=== PATIENT | female | born 1940 | race Caucasian/White ===

== ENCOUNTER 2017-06-15 14:10 | Emergency (ER) | payer MEDICARE, BC ==
[2017-06-15] MEDS ORDERED: Ondansetron 4 MG/2 ML SDV ONE (14:25)
[2017-06-15] MEDS ORDERED: Heparin Sodium/D5W 500 ML ONE (14:39)
[2017-06-15] MEDS ORDERED: Morphine 2 MG/ML Syringe IVPUSH ONE (14:46)
[2017-06-15] MEDS ORDERED: Metoprolol Tartrate 5 MG/5 ML SDV IVPUSH ONE (14:51)
[2017-06-15] MEDS ORDERED: Heparin Sodium 10,000 Units/1 ML MDV IVPUSH ONE (14:51)
[2017-06-15] MEDS ORDERED: Aspirin 81 MG Tab.Chew PO ONE (14:52)
[2017-06-15] MEDS ORDERED: Ondansetron 4 MG/2 ML SDV IVPUSH STA (14:56)
[2017-06-15 14:58] LABS: CHLORIDE,CL 98 mEq/L (98-106); SODIUM,NA 138 mEq/L (136-145)
[2017-06-15] MEDS ORDERED: Heparin Sodium/D5W 25,000 UNITS/500 ML BAG IV SCH (15:00)
[2017-06-15] MEDS ORDERED: Sodium Chloride 0.9% 500 ML IV SCH (15:00)
--- NOTE | 2017-06-15 15:06 | EDM.PDOC ---
ED HPI GENERAL MEDICAL PROBLEM - General Chief Complaint: Chest Pain Stated Complaint: CHEST PAIN/ ABD PAIN Time Seen by Provider: 06/15/17 14:10 Source of Information: Reports: Patient History Limitations: Reports: No Limitations - History of Present Illness INITIAL COMMENTS - FREE TEXT/NARRATIVE: This patient is a 77 year old female that presents to the ER. Patient presents ambulating into the ER. Patient is clinching her chest with her left hand. She is ambulating, thens tops, nearly falls clinching her chest saying she needs to stop and take a break. The patient is diaphoretic. The patient is immediately placed in stretcher in ER room 2. The patient reports that she woke up at 4am this morning due to pain in her epigastric area that radiated into her central chest then up into her jaw. She reports the pain was burning and sharp in nature. She reports since then she has had chest pain, nausea, shortness of breath that has not resolved. She reports taking Tums at home and had no relief in this pain. The patient is alert and oriented. Clinically she does present like an SD. I asked for an EKG immediately. Onset: Today Onset Date: 06/15/17 Onset Time: 04:00 Duration: Constant Location: Reports: Face (jaw), Chest, Abdomen (epigastric) Quality: Reports: Burning, Sharp, Stabbing Severity: Severe Improves with: Reports: None Worsens with: Reports: None Associated Symptoms: Reports: Chest Pain, Diaphoresis, Nausea/Vomiting, Shortness of Breath. Denies: Confusion, Cough, cough w sputum, Fever/Chills, Headaches, Loss of Appetite, Malaise, Rash, Seizure, Syncope, Weakness Treatments MOLD INSPECTOR: Reports: Other (see below) (Tums. Did not help per patient. ) Chest Pain Score (Numeric/FACES): 6 - Related Data Allergies Allergy/AdvReac Type Severity Reaction Status Date / Time aspirin Allergy Stomach Verified 06/15/17 14:43 Ache ciprofloxacin Allergy Stomach Verified 06/15/17 14:44 Upset nitrofurantoin Allergy Other Verified 06/15/17 14:43 macrocrystalline [From Macrodantin] Penicillins Allergy Swelling Verified 06/15/17 14:43 IVP dye Allergy Cardiac Uncoded 06/15/17 14:43 Arrest Home Meds: Home Meds ALPRAZolam [Alprazolam] 0.25 mg PO DAILY PRN 02/06/15 [History] Cholecalciferol (Vitamin D3) [Vitamin D3] 6,000 units PO DAILY 02/06/15 [History ] Estradiol 2 mg PO DAILY 02/06/15 [History] Isosorbide Mononitrate [Isosorbide Mononitrate ER] 30 mg PO DAILY 02/06/15 [ History] Loratadine [Claritin] 10 mg PO DAILY 02/06/15 [History] Verapamil HCl [Verapamil Sr] 360 mg PO DAILY 06/15/17 [History] Past Medical History Other Genitourinary History: bladder infections. Other OB/BYN History: hysterectomy. Other Musculoskeletal History: broken rib, wrist, toes, fingers. Social & Family History - Tobacco Use Smoking Status *Q: Never Smoker Second Hand Smoke Exposure: No - Alcohol Use Days Per Week of Alcohol Use: 1 Number of Drinks Per Day: 1 Total Drinks Per Week: 1 - Recreational Drug Use Recreational Drug Use: No ED ROS GENERAL - Review of Systems Review Of Systems: See Below Constitutional: Reports: No Symptoms HEENT: Reports: No Symptoms Respiratory: Reports: Shortness of Breath Cardiovascular: Reports: Chest Pain, Dyspnea on Exertion Endocrine: Reports: No Symptoms GI/Abdominal: Reports: Abdominal Pain (epigastric), Nausea, Vomiting : Reports: No Symptoms Musculoskeletal: Reports: No Symptoms Skin: Reports: Diaphoresis Neurological: Reports: No Symptoms Psychiatric: Reports: Anxiety Hematologic/Lymphatic: Reports: No Symptoms Immunologic: Reports: No Symptoms ED EXAM, GENERAL - Physical Exam Exam: See Below Exam Limited By: No Limitations General Appearance: Alert, WD/WN, Anxious, Moderate Distress, Other (appears in pain. Clinching chest. ) Eye Exam: Bilateral Eye: PERRL Ears: Normal External Exam, Normal Canal, Hearing Grossly Normal, Normal TMs Ear Exam: Bilateral Ear: Auricle Normal, Canal Normal, TM normal Nose: Normal Inspection, Normal Mucosa, No Blood Throat/Mouth: Normal Inspection, Normal Lips, Normal Teeth (dentures), Normal Gums, Normal Oropharynx, Normal Voice, No Airway Compromise Head: Atraumatic, Normocephalic Neck: Normal Inspection, Supple, Non-Tender, Full Range of Motion Respiratory/Chest: No Respiratory Distress, Lungs Clear, Normal Breath Sounds, No Accessory Muscle Use, Chest Non-Tender Cardiovascular: Normal Peripheral Pulses, Regular Rate, Rhythm, No Edema, No Gallop, No JVD, No Murmur, No Rub Peripheral Pulses: 2+: Radial (L), Radial (R), Posterior Tibial (L), Posterior Tibial (R) GI/Abdominal: Soft, Non-Tender, No Organomegaly, No Distention, No Abnormal Bruit, No Mass, Pelvis Stable Back Exam: Normal Inspection, Full Range of Motion Extremities: Normal Inspection, Normal Range of Motion, Non-Tender, No Pedal Edema, Normal Capillary Refill Neurological: Alert, Oriented, CN II-XII Intact, Normal Cognition Psychiatric: Anxious Skin Exam: Warm, Intact, Normal Color, No Rash, Diaphoretic Lymphatic: No Adenopathy EKG INTERPRETATION EKG Date: 06/15/17 Time: 14:19 Rate (Beats/Min): 90 ST-T: Elevated (but not 2mm. in inferior leads. Borderline.) ND/PQ Interval: Depression in 1 lead AVL. Comparison: NA - No Prior EKG Course - Vital Signs Last Recorded V/S: Last Vital Signs Temp 96.8 F 06/15/17 14:25 Pulse 93 06/15/17 15:28 Resp 16 06/15/17 15:28 BP 121/83 06/15/17 15:28 Pulse Ox 97 06/15/17 15:28 - Orders/Labs/Meds Labs: Laboratory Tests 06/15/17 06/15/17 06/15/17 Range/Units 14:28 14:28 14:28 WBC 7.1 (5.0-10.0) 10^3/uL RBC 4.59 (4.00-5.50) 10^6/uL Hgb 13.5 (12.0-16.0) g/dL Hct 41.2 (37.0-47.0) % MCV 89.8 (82.0-94.0) fL MCH 29.4 (27.0-32.0) pg MCHC 32.8 L (33.0-38.0) g/dL RDW Coeff of Hoang 14.2 (11.0-15.0) % Plt Count 202 (150-400) 10^3/uL Neut % (Auto) 82.4 (35-85) % Lymph % (Auto) 13.2 (10-55) % [place] % (Auto) 4.0 (0-16) % Eos % (Auto) 0.3 (0-5) % Baso % (Auto) 0.1 (0-3) % Neut # (Auto) 5.81 (1.80-7.00) 10^3/uL Lymph # (Auto) 0.93 L (1.00-4.80) 10^3/uL [place] # (Auto) 0.28 (0.00-0.80) 10^3/uL Eos # (Auto) 0.02 (0.00-0.45) 10^3/uL Baso # (Auto) 0.01 10^3/uL PT 10.0 (9.7-12.3) SEC INR 0.93 (0.92-1.18) APTT 26.6 (20.0-45.0) SEC Sodium 138 (136-145) mEq/L Potassium 4.2 (3.5-5.0) mEq/L Chloride 98 (98-106) mEq/L Carbon Dioxide 31 (21-32) mmol/L BUN 14 (7-18) mg/dL Creatinine 0.9 (0.6-1.0) mg/dL Est Cr Clr Drug Dosing 40.13 mL/min Estimated GFR (MDRD) > 60 (>=60) mL/min Glucose 118 H D (75-99) mg/dL Calcium 10.6 H (8.4-10.1) mg/dL Total Bilirubin 0.5 (0.0-1.0) mg/dL AST 22 (15-37) U/L ALT 23 (12-78) U/L Alkaline Phosphatase 92 (46-116) U/L Creatine Kinase 83 (21-215) U/L Troponin I 0.598 H (0.00-0.06) ng/mL Total Protein 8.5 H (6.4-8.2) g/dL Albumin 4.1 (3.4-5.0) g/dL Meds: Medications Discontinued Medications Generic Name Dose Route Start Last Admin Trade Name Freq PRN Reason Stop Dose Admin Aspirin 324 mg 06/15/17 14:52 06/15/17 14:15 Aspirin PO 06/15/17 14:53 324 mg ONETIME ONE Administration Heparin Sodium (Porcine) 4,091 units 06/15/17 14:51 06/15/17 15:04 Heparin Sodium IVPUSH 06/15/17 14:52 4,091 units .BOLUS ONE Administration Heparin Sodium/Dextrose Confirm 06/15/17 14:39 06/15/17 14:54 Heparin 25,000 Units In D5w 500 Ml Administered 06/15/17 14:40 Not Given Dose 500 mls @ as directed .ROUTE .STK-MED ONE Heparin Sodium/Dextrose 25,000 units in 500 mls @ 0 mls/hr 06/15/17 15:00 15:13 Heparin 25,000 Units In D5w 500 Ml IV 14.99 units/kg/hr TITRATE CHRISTIANO 20.4 mls/hr Protocol Administration 1,000 UNITS/KG/HR Sodium Chloride 500 mls @ 1,000 mls/hr 06/15/17 15:00 06/15/17 15:05 Normal Saline IV 1,000 mls/hr .BOLUS CHRISTIANO Administration Metoprolol Tartrate 2.5 mg 06/15/17 14:51 06/15/17 15:01 Lopressor IVPUSH 06/15/17 14:52 2.5 mg ONETIME ONE Administration Morphine Sulfate 2 mg 06/15/17 14:46 06/15/17 14:59 Morphine IVPUSH 06/15/17 14:47 2 mg ONETIME ONE Administration Morphine Sulfate 4 mg 06/15/17 15:10 06/15/17 15:18 Morphine IVPUSH 06/15/17 15:11 4 mg ONETIME ONE Administration Ondansetron HCl Confirm 06/15/17 14:25 06/15/17 15:03 Zofran Administered 06/15/17 14:26 Not Given Dose 4 mg .ROUTE .STK-MED ONE Ondansetron HCl 4 mg 06/15/17 14:56 06/15/17 14:25 Zofran IVPUSH 06/15/17 14:57 4 mg NOW STA Administration - Re-Assessments/Exams Free Text/Narrative Re-Assessment/Exam: 06/15/17 14:20 I have reviewed EKG, I have called and asked [facility] to review EKG. They have and report borderline EKG, ST elevation that is not 2mm. Suggested consult with cardiology. 06/15/17 14:27 I called and spoke with Dr. Lowry, EKG was sent to him. This is at [facility]. I discussed patient case with him. He reports Unstable angina with possible NonStemi SD. He reports to give the patient Lopressor, Heparin bolus and gtt, fluids. Did discuss patient has history of polyps with bowel bleeding about 4 years ago per patient. Need to treat with heparin anyways per cardiology due to benefits outweigh risks. Discussed with patient, she agrees to heparin, aware or risks. I have given the patient Morphine for pain. Patient is still laying in bed clinching her chest, curled in a position. At this time I do not have labs back, but clinically this patient appears as an SD. Ground transportation is not available ALS locally in [place]. I will fly this patient. Dr. Lowry is the accepting hybrid corn breeder. 06/15/17 15:31 Patient reports her pain has increased from a 6/10 to now a 7/10, more Morphine has been ordered. Troponin is elevated. I have called [facility] again and informed this of this lab. Departure - Departure Time of Disposition: 15:20 Disposition: DC/Tfer to Acute Hospital 02 Reason for Transfer *Q: Primary PCI Indicated Condition: Fair Clinical Impression: Acute myocardial infarction Qualifiers: Myocardial infarction ST status: non-ST elevation myocardial infarction Qualified Code(s): I21.4 - Non-ST elevation (NSTEMI) myocardial infarction Referrals: Ross Sharma MD [Primary Care Provider] - Forms: ED Department Discharge - Assessment/Plan Plan: PLEASE SEE RN NOTE FOR PFSH. The patient is being transferred via helicopter to [facility]. The risks of the transfer are crash, , worsening of SD, cardiac arrest, increase in pain. The benefits of the transfer are going to higher level of care, consult with hybrid corn breeder, cardiac intervention if needed. The risks of staying in [place] are , continued cardiac , cardiac arrest. The benefits of staying in [place] are close to home.
[2017-06-15] MEDS ORDERED: Morphine 4 MG/ML Syringe IVPUSH ONE (15:10)
[2017-06-15 17:31] VITALS: BP 121/83
== END 2017-06-15 16:00 ==
LOC: CC.ED 14:10
DX: I21.4 Non-ST elevation (NSTEMI) myocardial infarction (principal); Z79.899 Other long term (current) drug therapy; Z88.6 Allergy status to analgesic agent; Z88.1 Allergy status to other antibiotic agents; Z88.0 Allergy status to penicillin; Z88.8 Allergy status to other drugs, medicaments and biological substances; Z91.041 Radiographic dye allergy status
CPT/HCPCS: 36415; 71010; 80053; 82550; 84484; 85025; 85610; 85730; 93005; 96365; 96375; 96376; 99285; A9270; J1644; J2270; J2405; J7040; 93010; 96361; 96374; J3490

== ENCOUNTER 2017-08-22 17:05 | Emergency (ER) | payer MEDICARE, BC ==
[2017-08-22 17:41] LABS: CHLORIDE,CL 100 mEq/L (98-106); SODIUM,NA 141 mEq/L (136-145)
--- NOTE | 2017-08-22 17:47 | EDM.PDOC ---
ED HPI GENERAL MEDICAL PROBLEM - General Chief Complaint: Cardiovascular Problem Stated Complaint: IRREGULAR HEARTRATE Time Seen by Provider: 08/22/17 17:30 Source of Information: Reports: Patient History Limitations: Reports: No Limitations - History of Present Illness INITIAL COMMENTS - FREE TEXT/NARRATIVE: Josie is a 77 year old female who presents to the ED with complaints of dizziness, headache, and heart rate fluctuations. She reports that for the past two days she has had a headache and some dizziness. She reports the dizziness "feels like she's had too much to drink." She reports she had a heart attack back in May. She saw that her pulse went from 115-120 and became concerned. She reports she called her cigar packer and grader and they recommended she be seen. She reports she does have some anxiety and her mind began racing when she saw her pulse fluctuate that high. She did take a Xanax about 1 hour prior to ER presentation. She reports she wanted to make sure she wasn't in atrial fibrillation. At ED presentation, she denies any chest pain, shortness of breath , nausea, vomiting, diarrhea, recent illness, diaphoresis. She has no complaints other than dizziness and headache. She has otherwise been feeling well. When the nurse was doing med rec with the patient she points to a bottle of furosemide and states "that my stomach pills." We then said this medication wasn 't for her stomach. She reports she has been taking it "at least" twice a day for the past few days because she thought it was the pill for her acid reflux. Upon further review, it was noted that the patient is supposed to be taking OTC famotidine. She thought this was her furosemide, so she has been taking that instead. She has not been taking any famotidine. Onset Date: 08/21/17 Duration: Constant Location: Reports: Head Quality: Reports: Ache Associated Symptoms: Reports: Headaches. Denies: Confusion, Chest Pain, Cough, cough w sputum, Diaphoresis, Fever/Chills, Loss of Appetite, Malaise, Nausea/ Vomiting, Rash, Seizure, Shortness of Breath, Syncope, Weakness Treatments DATABASE MANAGER: Reports: Other Medication(s) (XANAX) Headache Pain Score (Numeric/FACES): 6 - Related Data Allergies Allergy/AdvReac Type Severity Reaction Status Date / Time aspirin Allergy Stomach Verified 06/15/17 14:43 Ache ciprofloxacin Allergy Stomach Verified 06/15/17 14:44 Upset nitrofurantoin Allergy Other Verified 06/15/17 14:43 macrocrystalline [From Macrodantin] Penicillins Allergy Swelling Verified 06/15/17 14:43 IVP dye Allergy Cardiac Uncoded 06/15/17 14:43 Arrest Home Meds: Home Meds ALPRAZolam [Alprazolam] 0.25 mg PO DAILY PRN 02/06/15 [History] Estradiol 2 mg PO DAILY 02/06/15 [History] Aspirin [Halfprin] 162 mg PO BID 08/22/17 [History] Clopidogrel Bisulfate [Clopidogrel] 75 mg PO DAILY 08/22/17 [History] Furosemide [Furosemide] 40 mg PO DAILY 08/22/17 [History] Loratadine 10 mg PO DAILY 08/22/17 [History] Magnesium 250 mg PO DAILY 08/22/17 [History] Metoprolol Succinate [Toprol XL] 25 mg PO DAILY 08/22/17 [History] Potassium Chloride [Klor-Con 10] 10 meq PO DAILY 08/22/17 [History] atorvaSTATin [Lipitor] 40 mg PO BEDTIME 08/22/17 [History] Past Medical History Cardiovascular History: Reports: Afib, Blood Clots/VTE/DVT Gastrointestinal History: Reports: Bowel Obstruction Genitourinary History: Reports: UTI, Recurrent Other Genitourinary History: bladder infections. CEMENT BOAT AND BARGE LOADER History: Reports: Polycystic Ovaries Other OB/BYN History: hysterectomy. Musculoskeletal History: Reports: Arthritis, Back Pain, Chronic, Fracture, Osteoarthritis, Other (See Below) Other Musculoskeletal History: broken rib, wrist, toes, fingers. Neurological History: Reports: Vertigo Psychiatric History: Reports: Anxiety Hematologic History: Reports: Anemia Oncologic (Cancer) History: Reports: Basal Cell Carcinoma Dermatologic History: Reports: Eczema - Past Surgical History HEENT Surgical History: Reports: Tonsillectomy GI Surgical History: Reports: Appendectomy, Colonoscopy, Polypectomy Female Surgical History: Reports: Hysterectomy Neurological Surgical History: Reports: None Musculoskeletal Surgical History: Reports: Shoulder Surgery Social & Family History - Family History Family Medical History: Noncontributory - Tobacco Use Smoking Status *Q: Never Smoker Used Tobacco, but Quit: Yes Month Tobacco Last Used: 35YRS AGO Second Hand Smoke Exposure: No - Alcohol Use Days Per Week of Alcohol Use: 1 Number of Drinks Per Day: 1 Total Drinks Per Week: 1 - Recreational Drug Use Recreational Drug Use: No ED ROS GENERAL - Review of Systems Review Of Systems: See Below Constitutional: Denies: Fever, Chills, Malaise, Weakness, Fatigue, Diaphoresis HEENT: Denies: Ear Pain, Eye Pain, Rhinitis, Sinus Problem, Vision Change Respiratory: Denies: Shortness of Breath, Wheezing, Pleuritic Chest Pain, Cough , Sputum Cardiovascular: Reports: Lightheadedness. Denies: Chest Pain, Blood Pressure Problem, Claudication, Dyspnea on Exertion, Edema, Palpitations, Syncope Endocrine: Denies: Fatigue GI/Abdominal: Denies: Abdominal Pain, Diarrhea, Decreased Appetite, Nausea, Vomiting : Reports: Frequency, Other (foul smelling urine). Denies: Dysuria, Flank Pain, Pain, Urgency Musculoskeletal: Reports: No Symptoms. Denies: Shoulder Pain, Arm Pain Skin: Reports: No Symptoms. Denies: Cyanosis, Pallor, Diaphoresis Neurological: Reports: Dizziness, Headache. Denies: Confusion ED EXAM, GENERAL - Physical Exam Exam: See Below Exam Limited By: No Limitations General Appearance: Alert, WD/WN, Anxious Eye Exam: Bilateral Eye: EOMI, Normal Fundi, Normal Inspection, PERRL Head: Atraumatic, Normocephalic Neck: Normal Inspection, Supple, Non-Tender, Full Range of Motion Respiratory/Chest: No Respiratory Distress, Lungs Clear, Normal Breath Sounds, No Accessory Muscle Use, Chest Non-Tender Cardiovascular: Normal Peripheral Pulses, Regular Rate, Rhythm, No Edema, No Gallop, No JVD, No Murmur, No Rub GI/Abdominal: Normal Bowel Sounds, Soft, Non-Tender, No Organomegaly, No Distention, No Abnormal Bruit, No Mass Back Exam: Normal Inspection, Full Range of Motion. No: CVA Tenderness (L), CVA Tenderness (R) Extremities: Normal Inspection, Normal Range of Motion, Non-Tender, Normal Capillary Refill, No Pedal Edema Neurological: Alert, Oriented, CN II-XII Intact, Normal Cognition, Normal Gait, Normal Reflexes, No Motor/Sensory Deficits Psychiatric: Anxious Skin Exam: Warm, Dry, Intact, Normal Color, No Rash Lymphatic: No Adenopathy Course - Vital Signs Last Recorded V/S: Last Vital Signs Temp 95.8 F 08/22/17 17:10 Pulse 101 H 08/22/17 17:48 Resp 16 08/22/17 17:48 BP 123/75 08/22/17 17:48 Pulse Ox 94 L 08/22/17 17:48 - Orders/Labs/Meds Orders: Active Orders 24 hr Category Date Time Status Chest 2V [CR] Stat Exams 08/22/17 17:12 Taken UA W/MICROSCOPIC [URIN] Stat Lab 08/22/17 17:50 Uncollected Lactated Ringers [Ringers, Lactated] 1,000 ml Med 08/22/17 18:00 Active IV ASDIRECTED Medication Orders Lactated Ringer's (Ringers, Lactated) 1,000 mls @ 999 mls/hr IV ASDIRECTED CHRISTIANO Last Admin: 08/22/17 18:00 Dose: 999 mls/hr Labs: Laboratory Tests 08/22/17 08/22/17 08/22/17 Range/Units 17:20 17:20 17:20 WBC 6.3 (5.0-10.0) 10^3/uL RBC 4.71 (4.00-5.50) 10^6/uL Hgb 13.9 (12.0-16.0) g/dL Hct 42.4 (37.0-47.0) % MCV 90.0 (82.0-94.0) fL MCH 29.5 (27.0-32.0) pg MCHC 32.8 L (33.0-38.0) g/dL RDW Coeff of Hoang 15.1 H (11.0-15.0) % Plt Count 203 (150-400) 10^3/uL Neut % (Auto) 65.7 (35-85) % Lymph % (Auto) 22.8 (10-55) % [place] % (Auto) 9.0 (0-16) % Eos % (Auto) 2.2 (0-5) % Baso % (Auto) 0.3 (0-3) % Neut # (Auto) 4.14 (1.80-7.00) 10^3/uL Lymph # (Auto) 1.44 (1.00-4.80) 10^3/uL [place] # (Auto) 0.57 (0.00-0.80) 10^3/uL Eos # (Auto) 0.14 (0.00-0.45) 10^3/uL Baso # (Auto) 0.02 10^3/uL PT 10.0 (9.7-12.3) SEC INR 0.93 (0.92-1.18) APTT 25.5 (20.0-45.0) SEC Sodium 141 (136-145) mEq/L Potassium 3.9 (3.5-5.0) mEq/L Chloride 100 (98-106) mEq/L Carbon Dioxide 30 (21-32) mmol/L BUN 20 H (7-18) mg/dL Creatinine 1.2 H (0.6-1.0) mg/dL Est Cr Clr Drug Dosing TNP Estimated GFR (MDRD) 44 L (>=60) mL/min Glucose 110 H (75-99) mg/dL Calcium 9.3 (8.4-10.1) mg/dL Lactate Dehydrogenase 159 (100-190) U/L Creatine Kinase 53 (21-215) U/L Troponin I < 0.017 (0.00-0.06) ng/mL Meds: Medications Generic Name Dose Route Start Last Admin Trade Name Freq PRN Reason Stop Dose Admin Lactated Ringer's 1,000 mls @ 999 mls/hr 08/22/17 18:00 08/22/17 18:00 Ringers, Lactated IV 999 mls/hr [facility]ED [facility] Administration - Re-Assessments/Exams Free Text/Narrative Re-Assessment/Exam: 08/22/17 18:04 Labs reviewed and discussed with patient. I suspect patient has been taking too much lasix. Her creatinine is 1.2 & BUN is 20. I also suspect this may be causing her headache and dizziness. Will bolus 1 L LR. 08/22/17 19:06 Patient reports she is feeling much better after IVF. She reports her dizziness and headache have improved. Will discharge home. Departure - Departure Time of Disposition: 19:06 Disposition: Home, Self-Care 01 Condition: Good Clinical Impression: Acute renal insufficiency, Dehydration, mild Instructions: Acute Kidney Injury, Dehydration, Adult, [id number] Referrals: Ross Sharma MD [Primary Care Provider] - Forms: ED Department Discharge Additional Instructions: Drink 64 ounces of water per day Furosemide (Lasix) as needed for edema/swelling Famotidine (Pepcid) as needed for reflux symptoms Tylenol as needed for headache Follow up with PCP - My Orders Last 24 Hours: My Active Orders 08/22/17 17:50 UA W/MICROSCOPIC [URIN] Stat 08/22/17 18:00 Lactated Ringers [Ringers, Lactated] 1,000 ml IV ASDIRECTED - Assessment/Plan Last 24 Hours: My Active Orders 08/22/17 17:50 UA W/MICROSCOPIC [URIN] Stat 08/22/17 18:00 Lactated Ringers [Ringers, Lactated] 1,000 ml IV ASDIRECTED
[2017-08-22 17:48] VITALS: BP 123/75
[2017-08-22] MEDS ORDERED: Lactated Ringers 1,000 ML IV SCH (18:00)
== END 2017-08-22 19:15 | disposition home or self-care (01) ==
LOC: CC.ED 17:05
DX: N28.9 Disorder of kidney and ureter, unspecified (principal); E86.0 Dehydration; Z79.82 Long term (current) use of aspirin; Z79.899 Other long term (current) drug therapy; Z88.6 Allergy status to analgesic agent; Z88.1 Allergy status to other antibiotic agents; Z88.0 Allergy status to penicillin; Z88.8 Allergy status to other drugs, medicaments and biological substances; Z91.041 Radiographic dye allergy status
CPT/HCPCS: 36415; 71046; 80048; 82550; 83615; 84484; 85025; 85610; 85730; 93005; 93010; 96360; 99284; J7120

== ENCOUNTER 2017-09-07 13:51 | Emergency (ER) | payer MEDICARE, BC ==
[2017-09-07 13:55] VITALS: BP 139/56
--- NOTE | 2017-09-07 14:18 | EDM.PDOC ---
ED HPI GENERAL MEDICAL PROBLEM - General Chief Complaint: Abdominal Pain Stated Complaint: abdominal pain Time Seen by Provider: 09/07/17 14:05 - History of Present Illness INITIAL COMMENTS - FREE TEXT/NARRATIVE: Josie is a 77 year old female who presents to the ED with complaints of epigastric abdominal pain and nausea. She was seen in the clinic yesterday and started on antibiotics for a suspected UTI. UA was negative, but antibiotics were started based on suspicion. Urine was cultured and shows > 100,000 alpha hemolytic strep. Patient reports that her dysuria has improved, as she has been taking AZO. She does report her urine is orange in color. She reports she has had decreased appetite due to the nausea. She has not eaten or drank anything today. Her ED chart indicates she has listed Macrobid as an allergy in the past. Clinic chart, where antibiotics were started did not have it listed as allergy. Patient does not remember if she truly has an allergy to it but reports she has not taken the antibiotic today as she is sick to her stomach. Onset: Today Duration: Intermittent Location: Reports: Abdomen Quality: Reports: Ache, Burning Severity: Moderate Upper Epigastric Pain Score (Numeric/FACES): 7 - Related Data Allergies Allergy/AdvReac Type Severity Reaction Status Date / Time Penicillins Allergy Swelling Verified 06/15/17 14:43 ciprofloxacin AdvReac Mild Nausea and Verified 09/08/17 15:34 Vomiting nitrofurantoin AdvReac Mild Other Verified 09/08/17 15:34 macrocrystalline [From Macrodantin] aspirin AdvReac Stomach Verified 09/08/17 15:34 Ache IVP dye Allergy Severe Cardiac Uncoded 09/08/17 15:34 Arrest Home Meds: Home Meds ALPRAZolam [Alprazolam] 0.25 mg PO DAILY PRN 02/06/15 [History] Estradiol 2 mg PO DAILY 02/06/15 [History] Aspirin [Halfprin] 162 mg PO BID 08/22/17 [History] Clopidogrel Bisulfate [Clopidogrel] 75 mg PO DAILY 08/22/17 [History] Furosemide [Furosemide] 40 mg PO DAILY 08/22/17 [History] Loratadine 10 mg PO DAILY 08/22/17 [History] Magnesium 250 mg PO DAILY 08/22/17 [History] Metoprolol Succinate [Toprol XL] 25 mg PO DAILY 08/22/17 [History] Potassium Chloride [Klor-Con 10] 10 meq PO DAILY 08/22/17 [History] atorvaSTATin [Lipitor] 40 mg PO BEDTIME 08/22/17 [History] Past Medical History Cardiovascular History: Reports: Afib, Blood Clots/VTE/DVT Gastrointestinal History: Reports: Bowel Obstruction Genitourinary History: Reports: UTI, Recurrent Other Genitourinary History: bladder infections. RN VASCULAR History: Reports: Polycystic Ovaries Other OB/BYN History: hysterectomy. Musculoskeletal History: Reports: Arthritis, Back Pain, Chronic, Fracture, Osteoarthritis, Other (See Below) Other Musculoskeletal History: broken rib, wrist, toes, fingers. Neurological History: Reports: Vertigo Psychiatric History: Reports: Anxiety Hematologic History: Reports: Anemia Oncologic (Cancer) History: Reports: Basal Cell Carcinoma Dermatologic History: Reports: Eczema - Past Surgical History HEENT Surgical History: Reports: Tonsillectomy GI Surgical History: Reports: Appendectomy, Colonoscopy, Polypectomy Female Surgical History: Reports: Hysterectomy Neurological Surgical History: Reports: None Musculoskeletal Surgical History: Reports: Shoulder Surgery Social & Family History - Family History Family Medical History: Noncontributory - Tobacco Use Smoking Status *Q: Never Smoker Used Tobacco, but Quit: Yes Month Tobacco Last Used: 35YRS AGO Second Hand Smoke Exposure: No - Caffeine Use Caffeine Use: Reports: Coffee - Alcohol Use Days Per Week of Alcohol Use: 1 Number of Drinks Per Day: 1 Total Drinks Per Week: 1 - Recreational Drug Use Recreational Drug Use: No ED ROS GENERAL - Review of Systems Review Of Systems: See Below Constitutional: Reports: Weakness, Fatigue, Decreased Appetite. Denies: Fever, Chills HEENT: Reports: No Symptoms Respiratory: Reports: No Symptoms. Denies: Shortness of Breath, Cough, Sputum Cardiovascular: Reports: Lightheadedness. Denies: Chest Pain Endocrine: Reports: Fatigue GI/Abdominal: Reports: Abdominal Pain, Decreased Appetite, Nausea. Denies: Black Stool, Bloody Stool, Diarrhea : Reports: Dysuria, Frequency, Urgency Neurological: Reports: No Symptoms. Denies: Confusion Psychiatric: Reports: Anxiety ED EXAM, GI/ABD - Physical Exam Exam: See Below Exam Limited By: No Limitations General Appearance: Alert, WD/WN, No Apparent Distress, Anxious Ears: Normal External Exam, Normal Canal, Hearing Grossly Normal, Normal TMs Nose: Normal Inspection, Normal Mucosa, No Blood Throat/Mouth: Normal Inspection, Normal Lips, Normal Teeth, Normal Gums, Normal Oropharynx, Normal Voice, No Airway Compromise Head: Atraumatic, Normocephalic Neck: Normal Inspection, Supple, Non-Tender, Full Range of Motion Respiratory/Chest: No Respiratory Distress, Lungs Clear, Normal Breath Sounds, No Accessory Muscle Use, Chest Non-Tender Cardiovascular: Normal Peripheral Pulses, Regular Rate, Rhythm, No Edema, No Gallop, No JVD, No Murmur, No Rub GI/Abdominal Exam: Normal Bowel Sounds, Soft, Tender (epigastric). No: No Distention, Guarding, Rigid, Rebound (Female) Exam: Deferred Back Exam: No: CVA Tenderness (L), CVA Tenderness (R) Extremities: Normal Inspection, Normal Range of Motion, Non-Tender, Normal Capillary Refill, No Pedal Edema Neurological: Alert, Oriented, CN II-XII Intact, Normal Cognition, Normal Gait, Normal Reflexes, No Motor/Sensory Deficits Psychiatric: Anxious Skin Exam: Warm, Dry, Intact, Normal Color, No Rash Lymphatic: No Adenopathy Course - Vital Signs Last Recorded V/S: Last Vital Signs Temp 98.3 F 09/07/17 13:52 Pulse 89 09/07/17 13:52 Resp 20 09/07/17 13:52 BP 139/56 L 09/07/17 13:52 Pulse Ox 96 09/07/17 13:52 - Orders/Labs/Meds Labs: Laboratory Tests 09/07/17 09/07/17 Range/Units 14:35 14:35 WBC 12.2 H (5.0-10.0) 10^3/uL RBC 4.47 (4.00-5.50) 10^6/uL Hgb 13.1 (12.0-16.0) g/dL Hct 41.5 (37.0-47.0) % MCV 92.8 (82.0-94.0) fL MCH 29.3 (27.0-32.0) pg MCHC 31.6 L (33.0-38.0) g/dL RDW Coeff of Hoang 14.5 (11.0-15.0) % Plt Count 186 (150-400) 10^3/uL Neut % (Auto) 83.4 (35-85) % Lymph % (Auto) 8.5 L (10-55) % [place] % (Auto) 7.6 (0-16) % Eos % (Auto) 0.3 (0-5) % Baso % (Auto) 0.2 (0-3) % Neut # (Auto) 10.20 H (1.80-7.00) 10^3/uL Lymph # (Auto) 1.04 (1.00-4.80) 10^3/uL Noble # (Auto) 0.93 H (0.00-0.80) 10^3/uL Eos # (Auto) 0.04 (0.00-0.45) 10^3/uL Baso # (Auto) 0.02 10^3/uL Sodium 137 (136-145) mEq/L Potassium 4.8 D (3.5-5.0) mEq/L Chloride 100 (98-106) mEq/L Carbon Dioxide 30 (21-32) mmol/L BUN 17 (7-18) mg/dL Creatinine 1.0 (0.6-1.0) mg/dL Est Cr Clr Drug Dosing 36.11 mL/min Estimated GFR (MDRD) 54 L (>=60) mL/min Glucose 126 H (75-99) mg/dL Calcium 9.5 (8.4-10.1) mg/dL Total Bilirubin 0.8 (0.0-1.0) mg/dL AST 16 (15-37) U/L ALT 18 (12-78) U/L Alkaline Phosphatase 104 (46-116) U/L Lactate Dehydrogenase 158 (100-190) U/L Creatine Kinase 90 (21-215) U/L Troponin I < 0.017 (0.00-0.06) ng/mL C-Reactive Protein 4.5 H (0.2-0.8) mg/dL Total Protein 7.7 (6.4-8.2) g/dL Albumin 3.6 (3.4-5.0) g/dL Meds: Medications Discontinued Medications Generic Name Dose Route Start Last Admin Trade Name Freq PRN Reason Stop Dose Admin Ceftriaxone Sodium 1 gm 09/07/17 14:48 09/07/17 15:01 Rocephin IVPUSH 09/07/17 14:49 1 gm ONETIME ONE Administration Al Hydroxide/Mg Hydroxide 30 0 ml 01/21/18 15:08 09/07/17 15:15 ml/ Lidocaine HCl 15 ml PO 09/07/17 15:09 45 ml ONETIME ONE Administration Sodium Chloride 1,000 mls @ 999 mls/hr 09/07/17 14:46 09/07/17 14:57 Normal Saline IV 09/07/17 15:46 999 mls/hr .BOLUS ONE Administration - Re-Assessments/Exams Free Text/Narrative Re-Assessment/Exam: 09/07/17 15:09 Discussed labs and EKG with patient. Discussed urine culture results. IVF and rocephin administered. Patient continued to have reflux type symptoms and burning pain in epigastric area. Will try GI cocktail. 09/07/17 15:39 Pain improved after GI cocktail. Nausea improved after IVF. Will discharge home. Departure - Departure Time of Disposition: 15:36 Disposition: Home, Self-Care 01 Condition: Good Clinical Impression: Nausea UTI (urinary tract infection) Qualifiers: Urinary tract infection type: site unspecified Hematuria presence: without hematuria Qualified Code(s): N39.0 - Urinary tract infection, site not specified GERD (gastroesophageal reflux disease) Qualifiers: Esophagitis presence: esophagitis presence not specified Qualified Code(s): K21.9 - Gastro-esophageal reflux disease without esophagitis - Discharge Information Instructions: Indigestion, [id number], Nausea and Vomiting, Adult, Easy-to- Read, Urinary Tract Infection, Adult Referrals: Ross Sharma MD [Primary Care Provider] - Forms: ED Department Discharge Additional Instructions: Push fluids Antibiotic as prescribed Small frequent meals Follow up in clinic next week, sooner if symptoms worsen or do not improve
[2017-09-07] MEDS ORDERED: Sodium Chloride 0.9% 1,000 ML IV ONE (14:46)
[2017-09-07] MEDS ORDERED: cefTRIAXone 1 GM Vial IVPUSH ONE (14:48)
[2017-09-07 14:56] LABS: CHLORIDE,CL 100 mEq/L (98-106); SODIUM,NA 137 mEq/L (136-145)
[2017-09-07] MEDS ORDERED: Alum Hydrox/Mag Hydrox/Simeth 30 ML, Lidocaine 2% 15 ML PO ONE ×2 (15:08)
== END 2017-09-07 16:00 | disposition home or self-care (01) ==
LOC: CC.ED 13:51
DX: K21.9 Gastro-esophageal reflux disease without esophagitis (principal); N39.0 Urinary tract infection, site not specified; I48.91 Unspecified atrial fibrillation; F41.9 Anxiety disorder, unspecified; Z88.0 Allergy status to penicillin; Z88.1 Allergy status to other antibiotic agents; Z88.6 Allergy status to analgesic agent; Z91.041 Radiographic dye allergy status; Z79.82 Long term (current) use of aspirin; Z90.49 Acquired absence of other specified parts of digestive tract; Z98.890 Other specified postprocedural states
CPT/HCPCS: 36415; 80053; 82550; 83615; 84484; 85025; 86140; 93005; 96361; 96374; 99283; A9270; J0696; J7030; 93010; 99284

== ENCOUNTER 2017-11-25 11:02 | Emergency (ER) | payer MEDICARE, BC ==
[2017-11-25 11:41] LABS: CHLORIDE,CL 104 mEq/L (98-106); SODIUM,NA 143 mEq/L (136-145)
[2017-11-25 13:43] VITALS: BP 116/45
[2017-11-25] MEDS: Ibuprofen 200 MG Tab PO PRN (14:05)
--- NOTE | 2017-11-25 14:08 | EDM.PDOC ---
ED HPI GENERAL MEDICAL PROBLEM - General Chief Complaint: Chest Pain Stated Complaint: CP Time Seen by Provider: 11/25/17 11:26 Source of Information: Reports: Patient History Limitations: Reports: No Limitations - History of Present Illness INITIAL COMMENTS - FREE TEXT/NARRATIVE: Patient presents to ER with complaints of chest pain. States she was up and about this am, getting ready for the day when she developed pain in the anterior chest that radiated through to her back. Does admit that it hurts worse with taking a deep breath. Reports history of [place] back in the fall, was placed on Plavix. Relates it was in the lining of her heart but her "vessels are pristine". She does admit that the pain she had then was different than now. Does admit to shortness of breath but that is chronic in nature. No nausea or diaphoresis. Has not had any trauma lately, no straining injuries. Onset: Today, Sudden Duration: Hour(s):, Waxing/Waning Location: Reports: Chest Quality: Reports: Sharp Severity: Moderate Improves with: Reports: Rest Worsens with: Reports: Breathing Associated Symptoms: Reports: Chest Pain, Shortness of Breath. Denies: Cough, Diaphoresis, Fever/Chills, Headaches, Loss of Appetite, Nausea/Vomiting, Syncope , Weakness Treatments FEED CRUSHER: Reports: Aspirin - Related Data Allergies Allergy/AdvReac Type Severity Reaction Status Date / Time Penicillins Allergy Swelling Verified 11/25/17 11:45 ciprofloxacin AdvReac Mild Nausea and Verified 11/25/17 11:45 Vomiting nitrofurantoin AdvReac Mild Other Verified 11/25/17 11:45 macrocrystalline [From Macrodantin] aspirin AdvReac Stomach Verified 11/25/17 11:45 Ache IVP dye Allergy Severe Cardiac Uncoded 09/08/17 15:34 Arrest Home Meds: Home Meds ALPRAZolam [Alprazolam] 0.25 mg PO DAILY PRN 02/06/15 [History] Estradiol 2 mg PO DAILY 02/06/15 [History] Aspirin [Halfprin] 162 mg PO BID 08/22/17 [History] Clopidogrel Bisulfate [Clopidogrel] 75 mg PO DAILY 08/22/17 [History] Furosemide 40 mg PO DAILY 08/22/17 [History] Loratadine 10 mg PO DAILY 08/22/17 [History] Magnesium 250 mg PO DAILY 08/22/17 [History] Metoprolol Succinate [Toprol XL] 25 mg PO DAILY 08/22/17 [History] Potassium Chloride [Klor-Con 10] 10 meq PO DAILY 08/22/17 [History] atorvaSTATin [Lipitor] 40 mg PO BEDTIME 08/22/17 [History] Past Medical History Cardiovascular History: Reports: Afib, Blood Clots/VTE/DVT Gastrointestinal History: Reports: Bowel Obstruction Genitourinary History: Reports: UTI, Recurrent Other Genitourinary History: bladder infections. SALES MGR History: Reports: Polycystic Ovaries Other OB/BYN History: hysterectomy. Musculoskeletal History: Reports: Arthritis, Back Pain, Chronic, Fracture, Osteoarthritis, Other (See Below) Other Musculoskeletal History: broken rib, wrist, toes, fingers. Neurological History: Reports: Vertigo Psychiatric History: Reports: Anxiety Hematologic History: Reports: Anemia Oncologic (Cancer) History: Reports: Basal Cell Carcinoma Dermatologic History: Reports: Eczema - Past Surgical History HEENT Surgical History: Reports: Tonsillectomy GI Surgical History: Reports: Appendectomy, Colonoscopy, Polypectomy Female Surgical History: Reports: Hysterectomy Neurological Surgical History: Reports: None Musculoskeletal Surgical History: Reports: Shoulder Surgery Social & Family History - Family History Family Medical History: Noncontributory - Tobacco Use Smoking Status *Q: Never Smoker Used Tobacco, but Quit: Yes Month/Year Tobacco Last Used: 35YRS AGO Second Hand Smoke Exposure: No - Caffeine Use Caffeine Use: Reports: None - Alcohol Use Days Per Week of Alcohol Use: 1 Number of Drinks Per Day: 1 Total Drinks Per Week: 1 - Recreational Drug Use Recreational Drug Use: No ED ROS GENERAL - Review of Systems Review Of Systems: See Below Constitutional: Denies: Fever, Chills, Malaise, Weakness HEENT: Reports: No Symptoms Respiratory: Reports: Shortness of Breath. Denies: Cough Cardiovascular: Reports: Chest Pain. Denies: Edema, Lightheadedness Endocrine: Denies: Fatigue GI/Abdominal: Denies: Abdominal Pain, Constipation, Diarrhea, Nausea, Vomiting : Reports: No Symptoms Musculoskeletal: Reports: Back Pain Skin: Reports: No Symptoms ED EXAM, GENERAL - Physical Exam Exam: See Below Exam Limited By: No Limitations General Appearance: Alert, WD/WN, No Apparent Distress Ears: Normal External Exam, Normal TMs Nose: Normal Inspection, Normal Mucosa, No Blood Throat/Mouth: Normal Inspection, Normal Oropharynx Head: Normocephalic Neck: Normal Inspection, Supple, Non-Tender Respiratory/Chest: No Respiratory Distress, Lungs Clear, Normal Breath Sounds Cardiovascular: Regular Rate, Rhythm GI/Abdominal: Normal Bowel Sounds, Soft, Non-Tender Extremities: Normal Inspection, No Pedal Edema Neurological: Alert, Oriented Skin Exam: Warm, Dry Course - Vital Signs Last Recorded V/S: Last Vital Signs Temp 97.2 F 11/25/17 13:35 Pulse 79 11/25/17 13:35 Resp 18 11/25/17 13:35 BP 116/45 L 11/25/17 13:35 Pulse Ox 97 11/25/17 13:35 - Orders/Labs/Meds Orders: Active Orders 24 hr Category Date Time Status EKG Documentation Completion [RC] STAT Care 11/25/17 11:16 Active Chest 2V [CR] Stat Exams 11/25/17 11:16 Taken Labs: Laboratory Tests 11/25/17 11/25/17 11/25/17 Range/Units 11:19 11:19 11:19 WBC 7.2 (5.0-10.0) 10^3/uL RBC 4.65 (4.00-5.50) 10^6/uL Hgb 13.8 (12.0-16.0) g/dL Hct 43.2 (37.0-47.0) % MCV 92.9 (82.0-94.0) fL MCH 29.7 (27.0-32.0) pg MCHC 31.9 L (33.0-38.0) g/dL RDW Coeff of Hoang 15.2 H (11.0-15.0) % Plt Count 192 (150-400) 10^3/uL Neut % (Auto) 64.7 (35-85) % Lymph % (Auto) 22.8 (10-55) % [place] % (Auto) 9.5 (0-16) % Eos % (Auto) 2.7 (0-5) % Baso % (Auto) 0.3 (0-3) % Neut # (Auto) 4.64 (1.80-7.00) 10^3/uL Lymph # (Auto) 1.63 (1.00-4.80) 10^3/uL [place] # (Auto) 0.68 (0.00-0.80) 10^3/uL Eos # (Auto) 0.19 (0.00-0.45) 10^3/uL Baso # (Auto) 0.02 10^3/uL PT 10.0 (9.7-12.3) SEC INR 0.96 (0.92-1.18) APTT 26.0 (23.2-32.3) SEC D-Dimer, Quantitative 0.25 (0.00-0.50) Sodium 143 (136-145) mEq/L Potassium 4.9 (3.5-5.0) mEq/L Chloride 104 (98-106) mEq/L Carbon Dioxide 31 (21-32) mmol/L BUN 20 H (7-18) mg/dL Creatinine 1.1 H (0.6-1.0) mg/dL Est Cr Clr Drug Dosing 32.83 mL/min Estimated GFR (MDRD) 48 L (>=60) mL/min Glucose 98 (75-99) mg/dL Calcium 9.5 (8.4-10.1) mg/dL Total Bilirubin 0.5 (0.0-1.0) mg/dL AST 24 (15-37) U/L ALT 52 (12-78) U/L Alkaline Phosphatase 313 H (46-116) U/L Lactate Dehydrogenase 157 (100-190) U/L Creatine Kinase 22 (21-215) U/L Troponin I < 0.017 (0.00-0.06) ng/mL Total Protein 7.8 (6.4-8.2) g/dL Albumin 3.6 (3.4-5.0) g/dL 11/25/17 Range/Units 15:35 WBC (5.0-10.0) 10^3/uL RBC (4.00-5.50) 10^6/uL Hgb (12.0-16.0) g/dL Hct (37.0-47.0) % MCV (82.0-94.0) fL MCH (27.0-32.0) pg MCHC (33.0-38.0) g/dL RDW Coeff of Hoang (11.0-15.0) % Plt Count (150-400) 10^3/uL Neut % (Auto) (35-85) % Lymph % (Auto) (10-55) % [place] % (Auto) (0-16) % Eos % (Auto) (0-5) % Baso % (Auto) (0-3) % Neut # (Auto) (1.80-7.00) 10^3/uL Lymph # (Auto) (1.00-4.80) 10^3/uL [place] # (Auto) (0.00-0.80) 10^3/uL Eos # (Auto) (0.00-0.45) 10^3/uL Baso # (Auto) 10^3/uL PT (9.7-12.3) SEC INR (0.92-1.18) APTT (23.2-32.3) SEC D-Dimer, Quantitative (0.00-0.50) Sodium (136-145) mEq/L Potassium (3.5-5.0) mEq/L Chloride (98-106) mEq/L Carbon Dioxide (21-32) mmol/L BUN (7-18) mg/dL Creatinine (0.6-1.0) mg/dL Est Cr Clr Drug Dosing mL/min Estimated GFR (MDRD) (>=60) mL/min Glucose (75-99) mg/dL Calcium (8.4-10.1) mg/dL Total Bilirubin (0.0-1.0) mg/dL AST (15-37) U/L ALT (12-78) U/L Alkaline Phosphatase (46-116) U/L Lactate Dehydrogenase (100-190) U/L Creatine Kinase (21-215) U/L Troponin I < 0.017 (0.00-0.06) ng/mL Total Protein (6.4-8.2) g/dL Albumin (3.4-5.0) g/dL Meds: Medications Discontinued Medications Generic Name Dose Route Start Last Admin Trade Name Freq PRN Reason Stop Dose Admin Ibuprofen 600 mg 11/25/17 13:51 11/25/17 14:05 Motrin PO 600 mg Q6H PRN Administration Pain Methylprednisolone Acetate 80 mg 11/25/17 16:40 11/25/17 17:10 Depo-Medrol IM 11/25/17 16:41 80 mg ONETIME ONE Administration - Re-Assessments/Exams Free Text/Narrative Re-Assessment/Exam: 11/25 Labs all normal. Will monitor and repeat enzymes in 4 hours due to cardiac history. Offered pain medicine but declines at this time. 11/25 1630 Patient doing well. Did get ibuprofen this afternoon and pain has improved. Enzymes are stable. Will give Depo Medrol as most likely pain from chest wall inflammation. Departure - Departure Time of Disposition: 16:41 Disposition: Home, Self-Care 01 Condition: Good Clinical Impression: Chest wall pain Referrals: Ross Sharma MD [Primary Care Provider] - Forms: ED Department Discharge Additional Instructions: 1. Rest 2. Ibuprofen or tylenol as needed for discomfort 3. Follow up if any ongoing concerns or new symptoms develop - My Orders Last 24 Hours: My Active Orders 11/25/17 11:16 EKG Documentation Completion [RC] STAT Chest 2V [CR] Stat - Assessment/Plan Last 24 Hours: My Active Orders 11/25/17 11:16 EKG Documentation Completion [RC] STAT Chest 2V [CR] Stat
[2017-11-25] MEDS: methylPREDNISolone Acetate 80 MG/ML SDV IM ONE (17:10)
== END 2017-11-25 17:15 | disposition home or self-care (01) ==
LOC: CC.ED 11:02
DX: R07.89 Other chest pain (principal); F41.9 Anxiety disorder, unspecified; Z88.0 Allergy status to penicillin; Z88.1 Allergy status to other antibiotic agents; Z79.899 Other long term (current) drug therapy; Z91.041 Radiographic dye allergy status; Z79.82 Long term (current) use of aspirin
CPT/HCPCS: 36415; 71046; 80053; 82550; 83615; 84484; 85025; 85379; 85610; 85730; 93005; 96372; 99284; A9270; J1040

== ENCOUNTER 2022-07-06 14:13 | Emergency (ER) | payer MEDICARE, BC ==
[2022-07-06 14:20] VITALS: BP 144/85; PULSE 105
[2022-07-06] MEDS ORDERED: Sodium Chloride 0.9% 10 ML Syringe FLUSH PRN (14:20)
[2022-07-06] MEDS ORDERED: Ondansetron 4 MG/2 ML SDV IVPUSH ONE (14:21)
[2022-07-06] MEDS ORDERED: Sodium Chloride 0.9% 1,000 ML IV ONE (14:38)
[2022-07-06 15:07] LABS: PTT,PARTIAL THROMBOPLSTIN TIME 23.9 SEC (23.2-32.3)
[2022-07-06 15:16] LABS: CORONAVIRUS COVID-19 NAA NEGATIVE (NEGATIVE); RESPIRATORY SYNCYTIAL VIR NAA NEGATIVE (NEGATIVE)
[2022-07-06] MEDS ORDERED: cefTRIAXone 1 GM Vial IVPUSH ONE (15:38)
[2022-07-06] MEDS ORDERED: Take Home: Cefuroxime 250 MG Tab, 2 Tab Pack PO ONE (15:42)
[2022-07-06] MEDS ORDERED: Take Home: Ondansetron 4 MG Tab.DIS, 2 Tab Pack PO ONE (15:46)
== END 2022-07-06 16:06 | disposition home or self-care (01) ==
LOC: SUPCPDRO 14:13 → CC.ED 14:13
DX: N30.01 Acute cystitis with hematuria (principal); K52.9 Noninfective gastroenteritis and colitis, unspecified; I48.91 Unspecified atrial fibrillation; K21.9 Gastro-esophageal reflux disease without esophagitis; Z88.0 Allergy status to penicillin; Z91.041 Radiographic dye allergy status; Z88.8 Allergy status to other drugs, medicaments and biological substances; Z79.82 Long term (current) use of aspirin; Z20.822 Contact with and (suspected) exposure to COVID-19
CPT/HCPCS: 0241U; 36415; 71046; 80053; 81001; 82150; 83690; 83735; 84484; 85025; 85610; 85730; 87086; 87088; 87186; 93005; 96361; 96374; 96375; 99284-25; A9270-GY; J0696; J2405; J7030

== ENCOUNTER 2024-04-16 20:52 | Emergency (ER) | payer MEDICARE, BC ==
[2024-04-16 22:02] LABS: APPEARANCE,URINE SLIGHTLY CLOUDY (CLEAR); BILIRUBIN,URINE NEGATIVE (NEGATIVE); COLOR,URINE YELLOW (YELLOW); GLUCOSE,URINE NEGATIVE (NEGATIVE); KETONES,URINE NEGATIVE (NEGATIVE); LEUKOCYTE ESTERASE,URINE SMALL (NEGATIVE); NITRITE,URINE POSITIVE (NEGATIVE); OCCULT BLOOD,URINE TRACE-INTACT (NEGATIVE); PH,URINE 5.5 (4.5-8.0); PROTEIN,URINE NEGATIVE (NEGATIVE); UROBILINOGEN,URINE 0.2 EU/dL (0.2-1.0)
[2024-04-16 22:09] LABS: BACTERIA,URINE MANY /HPF (NOT SEEN); EPITHELIAL CELLS,URINE MODERATE /HPF (NOT SEEN); WBC,URINE 50-75 /HPF (0-5)
[2024-04-16] MEDS: Take Home: Sulfamethoxazole/Trimethoprim 800-160 MG Tab, 6 Tab Pack PO ONE (22:24)
[2024-04-16 22:44] VITALS: BP 122/60; PULSE 77
== END 2024-04-16 22:43 | disposition home or self-care (01) ==
LOC: CC.ED 20:52
DX: N39.0 Urinary tract infection, site not specified (principal); I48.91 Unspecified atrial fibrillation; I25.2 Old myocardial infarction; M19.90 Unspecified osteoarthritis, unspecified site; Z90.49 Acquired absence of other specified parts of digestive tract; Z90.710 Acquired absence of both cervix and uterus; Z79.82 Long term (current) use of aspirin; Z79.899 Other long term (current) drug therapy; Z88.0 Allergy status to penicillin; Z88.1 Allergy status to other antibiotic agents; Z88.6 Allergy status to analgesic agent; Z91.041 Radiographic dye allergy status
CPT/HCPCS: 81001; 87086; 87088; 87186; 99283; 99284; A9270-GY